=== PATIENT | male | born 1990 | race Caucasian/White ===

== ENCOUNTER → 2023-09-01 13:54 | Outpatient (REF) | payer OTHER, SELFPAY | LOC: RCS 13:54 | PROVIDERS: ATTENDING PHYSICIAN Family Medicine | DX: R42 Dizziness and giddiness (principal); R51.9 Headache, unspecified; R00.2 Palpitations | CPT/HCPCS: 93005 ==

== ENCOUNTER 2023-09-07 15:56 | Emergency (ER) | payer OTHER, SELFPAY ==
[2023-09-07 16:02] VITALS: BP 143/95
[2023-09-07 16:12] LABS: % Basophils 0.4 % (0-2); % Immature Granulocytes 0.2 % (0-0.5); % Lymphocytes 38.6 % (20.5-51.1); % Monocytes 6.7 % (1.7-9.3); % Neutrophils 53.1 % (42.2-75.2); Absolute Eosinophils 0.1 10^3/uL (0-0.7); Absolute Monocytes 0.3 10^3/uL (0.1-0.6); Absolute Neutrophils 2.7 10^3/uL (1.4-6.5); Hematocrit 46.9 % (39.0-52.0); Hemoglobin 17.1 g/dL (13.0-18.0); Mean Corp Hgb Conc. 36.5 g/dL (33.0-37.0); Mean Corpuscular Hgb 30.6 pg (27.0-31.0); Mean Corpuscular Volume 83.9 fL (80.0-94.0); Nucleated Red Blood Cells % 0 % (-); Platelet Count 210 10^3/uL (130-400); Red Blood Cell Count 5.59 10^6/uL (4.70-6.10); Red Cell Dist. Width 11.8 % (11.5-14.5); White Blood Cell Count 5.1 10^3/uL (4.8-10.8)
[2023-09-07 16:31] LABS: ALT (SGPT) 21 U/L (0-50); AST (SGOT) 25 U/L (17-59); Albumin 4.8 g/dl (3.5-5.0); Alkaline Phosphatase 57 U/L (38-126); Blood Urea Nitrogen 14 mg/dl (9-20); Calcium 9.7 mg/dl (8.4-10.2); Carbon Dioxide 28 mmol/L (22-30); Chloride 101 mmol/L (98-107); Glucose 89 mg/dl (70-99); Potassium 4.5 mmol/L (3.5-5.1); Sodium 137 mmol/L (135-145); Total Bilirubin 0.7 mg/dl (0.2-1.3); Total Protein 7.4 g/dl (6.3-8.2); eGFR > 60.00
[2023-09-07 16:38] LABS: Troponin I < 0.012 ng/ml
[2023-09-07 17:56] VITALS: BP 138/67
--- NOTE | 2023-09-07 18:10 | ED.GENMED ---
History of Present Illness
General
Chief Complaint: Chest Pain
Time Seen by Provider: 09/07/23 17:59
Travel History
Have you had any contact with someone who has COVID-19?: No
Do you have any symptoms of coronavirus? Fever > 100 degrees, chills, cough, shortness of breath, sore throat, loss of taste or smell, muscle aches, or headache?: No
History of Present Illness
History of Present Illness:
33-year-old male with no significant past medical history presents to the emergency department for evaluation of chest pressure and occasional chest pains that been ongoing for the past several weeks. He states that immediately prior to the onset
of the symptoms he did have a viral upper respiratory tract infection. Denies any associated fevers or chills recently. Pain is occasionally pleuritic but not currently, nonpositional, nonradiating. Denies any leg swelling. Does continue to have
productive coughing after his viral URI which was upwards of a month prior to this visit.
Past History
Past History
ED Past Medical History: None
ED Past Surgical History: None
Social History
Tobacco: Non-smoker
Alcohol: Occasional
Drug: None
Review of Systems
Review of Systems
Allergies reviewed?: Yes
All Other Systems: ROS reviewed and negative except as documented in HPI and ROS
Phy Exam
Physical Exam
Physical Exam:
GEN: Well appearing, NAD, WDWN
HEENT: Oral mucosa moist, no scleral icterus
Cardiac: Regular rate and rhythm, no murmurs
Chest: Mildly reproducible tenderness along the sternocostal joints bilaterally
Lung: No respiratory distress, no tachypnea, lungs clear to auscultation bilaterally
MSK: No gross deformity or injuries
Skin: Good color, no pallor or jaundice, no rashes
Neuro: AO x3, moves all extremities freely
Psych: Calm, cooperative
Scores
Heart Score for Chest Pain Patients
STEMI patient?: No
History: Slightly or Non-Suspicious
ECG: Normal
Age: </= 45 years
Risk Factors: No Risk Factors
Troponin: </= Normal Limit
Heart Score for Chest Pain Patients: 0
Heart Score Risk: 2.5% MACE over next 6 weeks
Course
Orders/Labs/Results
Orders:
Orders
09/07/23 15:58
Electrocardiogram (*1) Urgent
Reason for Study: Chest Pain
EKG- Treatment ONCE
09/07/23 16:06
Complete Blood Count/With Diff Urgent
Comprehensive Metabolic Panel Urgent
Troponin I Urgent
09/07/23 18:22
CR Chest - 2 Views Urgent
Comment:
Reason For Exam: chest pain
09/07/23 16:06
09/07/23 16:06
Vital Signs
Initial and Last Documented VS:
Initial Vital Signs
Pulse Resp Pulse Ox
113 20 100
09/07/23 16:00 09/07/23 16:00 09/07/23 16:00
Last Documented Vital Signs
Temp Pulse Resp BP Pulse Ox
98.8 F 60 20 131/63 95
09/07/23 16:02 09/07/23 18:55 09/07/23 16:00 09/07/23 18:55 09/07/23 17:56
MDM/Problems Addressed
MDM/Problems Addressed:
Patient's workup is benign, likely musculoskeletal etiology. Doubt pericarditis or myocarditis given lack of EKG changes or positional quality to symptoms.
Comment
Comment:
EKG independently interpreted by me shows normal sinus rhythm at a rate of [address] changes concerning for ischemia
*Critical Care Note
Total Time (30-74mins, 75-104mins- exclusive of procedures): Not Applicable
ED Attending Note
-
Portions of this chart may have been created with voice recognition software.� Occasional wrong word or��sound alike� substitutions may have occurred due to the inherent limitations of voice recognition software.
Discharge Plan
Departure
Patient Disposition: Home (Routine Discharge)
Date of Disposition: 09/07/23
Time of Disposition: 18:46
Patient with high blood pressure during this ER visit?: No
Discharge Problem:
Acute costochondritis
Instructions: Costochondritis (DC)
Prescriptions:
New
diclofenac sodium 75 mg tablet,delayed release (DR/EC)
75 mg PO BID Qty: 20 0RF
No Action
fluticasone propionate 50 mcg/actuation spray,suspension
1 spray intranasal DAILY Qty: 16 0RF
amoxicillin-pot clavulanate 875-125 mg tablet
1 tab PO BID Qty: 20 0RF
Referrals:
Basim Avila DO [Family Provider] -
Interventions
Interventions:
*Risk Screen - Suicide Last Done: 09/07/23 16:00
*General Assessment Last Done: 09/07/23 16:00
*Neglect/Abuse Screening Last Done: 09/07/23 16:00
*ED COVID-19 Vaccine History Last Done: 09/07/23 16:00
*Nursing Disposition Last Done: 09/07/23 18:55
ED- Cardiac Assessment Last Done: 09/07/23 17:46
Discharge Date and Time
Discharge Date/Time: 09/07/23 18:55
Print Language: PORTUGUESE
[2023-09-07 18:55] VITALS: BP 131/63
== END 2023-09-07 18:55 | disposition home or self-care (01) ==
LOC: EMR 15:56
PROVIDERS: EMERGENCY PHYSICIAN Emergency Medicine; FAMILY PHYSICIAN Family Medicine
DX: M94.0 Chondrocostal junction syndrome [Tietze] (principal)
CPT/HCPCS: 99284; 71046; 80053; 84484; 85025; 93005

== ENCOUNTER → 2023-09-15 19:28 | Outpatient (REF) | payer OTHER, SELFPAY | LOC: MRI 19:28 | PROVIDERS: ATTENDING PHYSICIAN Family Medicine | DX: R42 Dizziness and giddiness (principal); R51.9 Headache, unspecified | CPT/HCPCS: 70553; A9575 ==

== ENCOUNTER → 2023-10-26 09:28 | Outpatient (REF) | payer OTHER, SELFPAY | LOC: RAD 09:28 | PROVIDERS: ATTENDING PHYSICIAN Specialist; FAMILY PHYSICIAN Family Medicine | DX: M54.12 Radiculopathy, cervical region (principal) | CPT/HCPCS: 72052 ==